=== PATIENT | male | born 1955 | race Caucasian/White ===

== ENCOUNTER 2019-08-13 10:11 | Inpatient (IN) | payer MEDICARE, OTHER ==
[~2019-08-13] VITALS: Ht 185.4 cm; Wt 68.2 kg
[2019-08-13] VITALS (7 sets, daily range): BP systolic 90–182; BP diastolic 40–83
[~2019-08-13 10:11] MED LIST: adenosine 3mg/ml 2ml vial IV ONE
[2019-08-13] MEDS ORDERED: famotidine/PF 10 mg/ml inj IV ONE (10:45)
[2019-08-13] MEDS ORDERED: normal saline 1000ML IV soln IV ONE (10:45)
[2019-08-13] MEDS ORDERED: octreotide inj. 1,250 MCG in normal saline 250ml IV soln 250 ML IV ONE (10:45)
[2019-08-13] MEDS ORDERED: pantoprazole 40 MG vial IV ONE (10:45)
[2019-08-13] MEDS ORDERED: ondansetron/PF 4mg/2ml inj IV ONE ×2 (10:45→11:40)
--- NOTE | 2019-08-13 10:45 | NUR ---
1020: vagal manuevers x2 tried; unsuccessful conversion 1022: Adenosine 6mg IV push w/ ns flush; [facility] 1023: Initial decrease in HR 1029: HR back at 180, Adenosine 12mg iv push w/ ns flush; [facility] 1030: HR 125; 2nd ekg performed 1047: HR back up to 179, Adenosine 12mg iv push w/ ns flush; [facility] 1049: HR 122 1052: HR 135; 2nd ekg performed
[2019-08-13 10:51] LABS: BASOPHILS # (AUTO) 0.1 X10'3 (0-0.2); BASOPHILS % (AUTO) 0.4 % (0-1); EOSINOPHILS % (AUTO) 0 % (0-6); HEMOGLOBIN 16.9 g/dl (14.0-17.9); LYMPHOCYTES # (AUTO) 2.7 X10'3 (1.1-4.8); LYMPHOCYTES % (AUTO) 12.6 % (21-51); MEAN CORPUSCULAR HEMOGLOBIN 31.5 PG (27.0-31.0); MEAN CORPUSCULAR HGB CONC 33.8 g/dL (33.0-36.5); MEAN CORPUSCULAR VOLUME 93.2 FL (78-98); MEAN PLATELET VOLUME 8.8 FL (7.4-10.4); MONOCYTES # (AUTO) 1.7 X10'3 (0-0.9); NEUTROPHILS # (AUTO) 16.8 X10'3 (1.8-7.7); PLATELET COUNT 155 X10'3 (140-440); RED BLOOD COUNT 5.36 X10'6 (4.70-6.10); RED CELL DISTRIBUTION WIDTH 13.1 % (11.5-14.5); WHITE BLOOD COUNT 21.3 X10'3 (4.5-11.0)
[2019-08-13 10:58] LABS: PARTIAL THROMBOPLASTIN TIME 37 SECONDS (22-32)
[2019-08-13] MEDS ORDERED: pantoprazole 40MG/NS 100ML BAG 100 ML IV SCH (11:00)
[2019-08-13 11:01] LABS: ALANINE AMINOTRANSFERASE 10 U/L (12-78); ALBUMIN 3.4 G/DL (3.4-5.0); ALBUMIN/GLOBULIN RATIO 0.8 (1.1-1.5); ALKALINE PHOSPHATASE 88 IU/L (46-116); ANION GAP 13 (8-16); ASPARTATE AMINO TRANSFERASE 18 U/L (10-37); BILIRUBIN,TOTAL 0.4 MG/DL (0.1-1.0); BLOOD UREA NITROGEN 53 MG/DL (7-18); BUN/CREATININE RATIO 30.3 (5.4-32.0); CALCIUM 9.5 MG/DL (8.5-10.1); CHLORIDE 99 MMOL/L (99-107); CREATININE 1.75 MG/DL (0.60-1.10); GLUCOSE 155 MG/DL (70-104); POTASSIUM 3.9 MMOL/L (3.5-5.1); SODIUM 135 MMOL/L (135-145); TOTAL CARBON DIOXIDE 23.2 MMOL/L (24-32); TOTAL PROTEIN 7.7 G/DL (6.4-8.2); eGFR 39 ML/MIN
[2019-08-13] MEDS ORDERED: diltiazem-NS 100mg/100ml 125 ML IV SCH (11:05)
[2019-08-13] MEDS ORDERED: diltiazem-D5W 125mg/125ml 125 ML IV SCH (11:05)
[2019-08-13] MEDS: diltiazem-NS 100mg/100ml 100 ML IV SCH ×2 (11:22→13:51)
--- NOTE | 2019-08-13 11:28 | NUR ---
the octreotide would not let you set the pump above 10ml/hr even though the order was for 10.25ml/hr. will inform MD and see if he wants it at 10.25 or 10.
[2019-08-13] MEDS ORDERED: NO HOME MEDS (11:50)
[2019-08-13] MEDS ORDERED: ondansetron/PF 4mg/2ml inj IV PRN (12:15)
[2019-08-13] MEDS ORDERED: mag hydrox/Alum hydrox/simeth 30ml oral suspension PO PRN (12:15)
[2019-08-13] MEDS ORDERED: magnesium Cl slow-release 64mg tablet PO PRN (12:15)
[2019-08-13] MEDS ORDERED: magnesium 4gm in 100ml NS 100 ML IV PRN (12:15)
[2019-08-13] MEDS ORDERED: docusate sod 100mg capsule PO PRN (12:15)
[2019-08-13] MEDS ORDERED: potassium Cl 20 mEq SR tablet PO PRN ×2 (12:15)
[2019-08-13] MEDS ORDERED: magnesium 2GM in 50ml NS 50 ML IV PRN (12:15)
[2019-08-13] MEDS ORDERED: potassium CL 10mEq/100ml bag 100 ML IV PRN ×2 (12:15)
[2019-08-13] MEDS ORDERED: acetaminophen 325mg tablet PO PRN (12:15)
[2019-08-13 13:12] LABS: OCCULT BLOOD STOOL POSITIVE (Neg)
[2019-08-13] MEDS: pantoprazole 40MG/NS 100ML BAG 100 ML IV SCH ×3 (13:13→21:13)
--- NOTE | 2019-08-13 13:37 | NUR ---
Anny stopped paging Dr Panchal to see if he wants to continue or DC it. Patient in sinus rhythm (94) SBP 92. Addendum: 08/13/19 at 1349 by Albert Geller RN Paged Dr Panchal the info. Will drop to 5ml/hr per
--- NOTE | 2019-08-13 13:47 | NUR ---
PAGER ID: [phone] MESSAGE: Re: Sherry Rocha, Room: 3026B. Can I put a diet order in for Pt? Pt will be NPO at midnight for CT tomorrow morning. -Jozef [facility] #[id number] Addendum: 08/13/19 at 1349 by Albert Geller RN wrong patient
[2019-08-13] MEDS ORDERED: diltiazem-NS 100mg/100ml 100 ML IV SCH (16:00)
[2019-08-13 17:17] LABS: CLARITY,URINE CLEAR (Clear); COLOR,URINE YELLOW (Yellow); GLUCOSE, URINE NEGATIVE (Neg); KETONES,URINE TRACE mg/dl (Neg); LEUKOCYTE ESTERASE ,URINE NEGATIVE (Neg); NITRITES, URINE NEGATIVE (Neg); OCCULT BLOOD,URINE SMALL (Neg); PH,URINE 5.5 (4.8-8.0); PROTEIN,URINE NEGATIVE (Neg); UROBILINOGEN,URINE 0.2 E.U/dL (0.2-1.0)
[2019-08-13 17:18] LABS: UA COLLECTION TYPE NON-SPECIFIED
[2019-08-13 17:21] LABS: BACTERIA,URINE NONE SEEN /HPF (Neg); MUCUS STRANDS NONE SEEN /LPF (Neg); RBC,URINE 0-2 /HPF (0-2); SQUAMOUS EPITHELIAL CELL,UR NONE SEEN /LPF (FEW); WBC,URINE 0-4 /HPF (0-4)
--- NOTE | 2019-08-13 18:08 | NUR ---
Problems reprioritized. Patient report given, questions answered & plan of care reviewed with MUSA Fernandez.
--- NOTE | 2019-08-13 18:30 | NUR ---
Patient in room PCU 3012. I have received report from Albert VIGIL and had the opportunity to ask questions and assume patient care.
[2019-08-13] MEDS: enoxaparin 30mg/0.3ml syringe SQ SCH (19:33)
[2019-08-13] MEDS: enoxaparin 40mg/0.4ml syringe SQ SCH (19:33)
[2019-08-13] MEDS ORDERED: FLU VACC QS 2019-20 (6 MOS UP) 60 MCG/0.5 ML VIAL IMVAC ONE (20:00)
[2019-08-13] MEDS: K and/or MAG REPLACEMENT MC SCH (20:00)
[2019-08-13] MEDS ORDERED: pneumococcal 23-VAL P-sac vacc 25 mcg/0.5ml vial IMVAC ONE (20:00)
[2019-08-13] MEDS ORDERED: diltiazem 30mg tablet PO ONE (21:50)
--- NOTE | 2019-08-13 21:59 | NUR ---
Discussed with Dr. Gibbs about patient HR and blood pressure on Cardizem @ 5mg. ordered 60mg cardizem now, stop order for cardizem gtt and to start 60mg cardizem q6 tmw am.
[2019-08-14] VITALS (22 sets, daily range): BP systolic 91–149; BP diastolic 37–72
[2019-08-14] MEDS: pantoprazole 40MG/NS 100ML BAG 100 ML IV SCH ×5 (01:27→21:32)
--- NOTE | 2019-08-14 06:00 | NUR ---
Patient in room PCU 3012. I have received report from Jim VIGIL and had the opportunity to ask questions and assume patient care.
[2019-08-14 06:07] LABS: BASOPHILS % (AUTO) 0.3 % (0-1); EOSINOPHILS % (AUTO) 0 % (0-6); HEMATOCRIT 37.6 % (42.0-52.0); LYMPHOCYTES # (AUTO) 1.5 X10'3 (1.1-4.8); LYMPHOCYTES % (AUTO) 14.3 % (21-51); MEAN CORPUSCULAR HEMOGLOBIN 31.6 PG (27.0-31.0); MEAN CORPUSCULAR HGB CONC 34.5 g/dL (33.0-36.5); MEAN CORPUSCULAR VOLUME 91.6 FL (78-98); MEAN PLATELET VOLUME 8.6 FL (7.4-10.4); MONOCYTES # (AUTO) 0.6 X10'3 (0-0.9); NEUTROPHILS # (AUTO) 8.4 X10'3 (1.8-7.7); NEUTROPHILS % (AUTO) 79.4 % (42-75); PLATELET COUNT 111 X10'3 (140-440); RED BLOOD COUNT 4.11 X10'6 (4.70-6.10); RED CELL DISTRIBUTION WIDTH 13.4 % (11.5-14.5); WHITE BLOOD COUNT 10.6 X10'3 (4.5-11.0)
[2019-08-14 06:17] LABS: ALANINE AMINOTRANSFERASE 10 U/L (12-78); ALBUMIN 2.7 G/DL (3.4-5.0); ALBUMIN/GLOBULIN RATIO 0.8 (1.1-1.5); ALKALINE PHOSPHATASE 64 IU/L (46-116); ANION GAP 8 (8-16); ASPARTATE AMINO TRANSFERASE 23 U/L (10-37); BILIRUBIN,TOTAL 0.3 MG/DL (0.1-1.0); BLOOD UREA NITROGEN 36 MG/DL (7-18); BUN/CREATININE RATIO 31.6 (5.4-32.0); CALCIUM 8.1 MG/DL (8.5-10.1); CHLORIDE 106 MMOL/L (99-107); CREATININE 1.14 MG/DL (0.60-1.10); GLUCOSE 127 MG/DL (70-104); MAGNESIUM 1.5 MG/DL (1.5-2.4); POTASSIUM 3.9 MMOL/L (3.5-5.1); SODIUM 138 MMOL/L (135-145); TOTAL CARBON DIOXIDE 23.8 MMOL/L (24-32); eGFR 64 ML/MIN
--- NOTE | 2019-08-14 06:25 | NUR ---
Problems reprioritized. Patient report given, questions answered & plan of care reviewed with Taylor VIGIL.
[2019-08-14] MEDS: diltiazem 30mg tablet PO SCH ×4 (07:31→19:17)
[2019-08-14] MEDS: enoxaparin 30mg/0.3ml syringe SQ SCH ×2 (07:31→19:14)
[2019-08-14] MEDS: enoxaparin 40mg/0.4ml syringe SQ SCH ×2 (07:31→19:14)
[2019-08-14] MEDS: K and/or MAG REPLACEMENT MC SCH ×2 (08:00→19:42)
[2019-08-14] MEDS: ciprofloxacin 250mg tablet PO SCH ×2 (10:26→21:31)
[2019-08-14] MEDS ORDERED: MIDAZolam 5mg/5ml vial ONE (11:46)
[2019-08-14] MEDS ORDERED: LIDOcaine Viscous 15ml cup ONE (11:46)
[2019-08-14] MEDS ORDERED: fentaNYL/PF 50MCG/1 ML 2ML syringe ONE (11:46)
[2019-08-14] MEDS ORDERED: epiNEPHrine 0.1mg/ml 10ml syringe ONE (13:58)
[2019-08-14] MEDS: metroNIDAZOLE-Flagyl 500mg/NS 100 ML IV SCH (15:20)
--- NOTE | 2019-08-14 18:39 | NUR ---
Patient in room PCU 3012. I have received report from Cassandra VIGIL and had the opportunity to ask questions and assume patient care.
--- NOTE | 2019-08-14 18:52 | NUR ---
Patient in room PCU 3012. I have received report from Taylor VIGIL and had the opportunity to ask questions and assume patient care.
[2019-08-15] VITALS: BP 98/43
[2019-08-15] MEDS: metroNIDAZOLE-Flagyl 500mg/NS 100 ML IV SCH ×2 (00:55→08:33)
[2019-08-15] MEDS: pantoprazole 40MG/NS 100ML BAG 100 ML IV SCH ×2 (01:00→03:50)
[2019-08-15] MEDS: diltiazem 30mg tablet PO SCH ×2 (01:02→08:00)
[2019-08-15 02:00] VITALS: BP 102/52
[2019-08-15 05:58] LABS: BASOPHILS % (AUTO) 0.4 % (0-1); EOSINOPHILS % (AUTO) 0.2 % (0-6); HEMATOCRIT 33.4 % (42.0-52.0); HEMOGLOBIN 11.6 g/dl (14.0-17.9); LYMPHOCYTES # (AUTO) 1.7 X10'3 (1.1-4.8); MEAN CORPUSCULAR HEMOGLOBIN 32.1 PG (27.0-31.0); MEAN CORPUSCULAR HGB CONC 34.7 g/dL (33.0-36.5); MEAN CORPUSCULAR VOLUME 92.4 FL (78-98); MEAN PLATELET VOLUME 8.5 FL (7.4-10.4); MONOCYTES # (AUTO) 0.5 X10'3 (0-0.9); NEUTROPHILS # (AUTO) 4.2 X10'3 (1.8-7.7); NEUTROPHILS % (AUTO) 65.4 % (42-75); PLATELET COUNT 115 X10'3 (140-440); RED BLOOD COUNT 3.62 X10'6 (4.70-6.10); RED CELL DISTRIBUTION WIDTH 13.3 % (11.5-14.5); WHITE BLOOD COUNT 6.4 X10'3 (4.5-11.0)
--- NOTE | 2019-08-15 06:08 | NUR ---
Problems reprioritized. Patient report given, questions answered & plan of care reviewed with Taylor VIGIL.
[2019-08-15 06:29] LABS: ALANINE AMINOTRANSFERASE 11 U/L (12-78); ALBUMIN 2.4 G/DL (3.4-5.0); ALBUMIN/GLOBULIN RATIO 0.7 (1.1-1.5); ALKALINE PHOSPHATASE 54 IU/L (46-116); ANION GAP 7 (8-16); ASPARTATE AMINO TRANSFERASE 19 U/L (10-37); BILIRUBIN,TOTAL 0.3 MG/DL (0.1-1.0); BLOOD UREA NITROGEN 22 MG/DL (7-18); BUN/CREATININE RATIO 22.9 (5.4-32.0); CALCIUM 7.6 MG/DL (8.5-10.1); CHLORIDE 108 MMOL/L (99-107); CREATININE 0.96 MG/DL (0.60-1.10); GLUCOSE 98 MG/DL (70-104); MAGNESIUM 1.5 MG/DL (1.5-2.4); POTASSIUM 3.8 MMOL/L (3.5-5.1); SODIUM 141 MMOL/L (135-145); TOTAL CARBON DIOXIDE 25.6 MMOL/L (24-32); TOTAL PROTEIN 5.7 G/DL (6.4-8.2); eGFR 79 ML/MIN
[2019-08-15 07:00] VITALS: BP 121/67
--- NOTE | 2019-08-15 07:26 | NUR ---
Patient in room PCU 3012. I have received report from Cassandra VIGIL and had the opportunity to ask questions and assume patient care.
[2019-08-15] MEDS: K and/or MAG REPLACEMENT MC SCH (08:00)
[2019-08-15] MEDS: enoxaparin 30mg/0.3ml syringe SQ SCH (08:34)
[2019-08-15] MEDS: enoxaparin 40mg/0.4ml syringe SQ SCH (08:34)
[2019-08-15] MEDS ORDERED: ESOM40CA49 PO (09:24)
[2019-08-15] MEDS: ciprofloxacin 250mg tablet PO SCH (09:53)
[2019-08-15 09:59] VITALS: BP 95/66
[2019-08-15 10:00] VITALS: BP_SYST 125; BP_SYST 99; BP_DIAS 54; BP_DIAS 57
--- NOTE | 2019-08-15 11:30 | NUR ---
Patient was cleared to discharge home. Orthostatic blood pressures obtained to ensure stability, pt did well. MD notified. Patient was vaccinated prior to discharge. Discharge instructions and medications reviewed with patient. S/sx reviewed with patient. Written prescription given to Pt. Tele removed. PIV's removed. Patient left in stable condition accompanied by his daughter.
== END 2019-08-15 11:27 | disposition home or self-care (01) | DRG 377 ==
LOC: ER 10:12 → ED HOLD 12:15 → PCU 3S 13:34
PROVIDERS: ADMIT Family Medicine; ATTEND Family Medicine
PROC: 3E02340 Introduction of Influenza Vaccine into Muscle, Percutaneous Approach (ICD-10-PCS; 2019-08-13)
PROC: 0DB68ZX Excision of Stomach, Via Natural or Artificial Opening Endoscopic, Diagnostic (ICD-10-PCS; principal; 2019-08-14)
PROC: 0W3P8ZZ Control Bleeding in Gastrointestinal Tract, Via Natural or Artificial Opening Endoscopic (ICD-10-PCS; 2019-08-14)
PROC: 3E0234Z Introduction of Serum, Toxoid and Vaccine into Muscle, Percutaneous Approach (ICD-10-PCS; 2019-08-15)
DX: K26.4 Chronic or unspecified duodenal ulcer with hemorrhage (principal); N17.0 Acute kidney failure with tubular necrosis; I47.1 Supraventricular tachycardia; D62 Acute posthemorrhagic anemia; T39.395A Adverse effect of other nonsteroidal anti-inflammatory drugs [NSAID], initial encounter; K29.51 Unspecified chronic gastritis with bleeding; I49.9 Cardiac arrhythmia, unspecified; I49.3 Ventricular premature depolarization; E86.0 Dehydration; J44.9 Chronic obstructive pulmonary disease, unspecified; D72.829 Elevated white blood cell count, unspecified; K21.9 Gastro-esophageal reflux disease without esophagitis; Z80.0 Family history of malignant neoplasm of digestive organs; Z82.3 Family history of stroke; Z82.49 Family history of ischemic heart disease and other diseases of the circulatory system; Z83.3 Family history of diabetes mellitus; Z72.0 Tobacco use; Z23 Encounter for immunization
CPT/HCPCS: 36415; 43227; 43236; 43239; 43255; 71045; 80053; 81001; 82272; 83735; 85025; 85610; 85730; 86870; 86885; 86900; 86901; 87081; 93005; 93308; 99152; 99153; A4620; C9113; G0378; J0153; J0171; J1650; J2250; J2354; J2405; J3010; J3490; J7030; J7040; J7050; Q2037

== ENCOUNTER 2021-07-01 12:04 | Emergency (ER) | payer OTHER, MEDICARE ==
[~2021-07-01] VITALS: Ht 185.4 cm; Wt 68.2 kg
[~2021-07-01 12:04] MED LIST changes: +ESOM40CA49 PO; -adenosine 3mg/ml 2ml vial IV ONE
--- NOTE | 2021-07-01 12:56 | NUR ---
lab at bedside
[2021-07-01 13:08] LABS: BASOPHILS % (AUTO) 0.4 % (0-1); EOSINOPHILS # (AUTO) 0.2 X10'3 (0-0.9); EOSINOPHILS % (AUTO) 1.3 % (0-6); HEMATOCRIT 47.7 % (42.0-52.0); HEMOGLOBIN 16.2 g/dl (14.0-17.9); LYMPHOCYTES # (AUTO) 2.3 X10'3 (1.1-4.8); LYMPHOCYTES % (AUTO) 17.5 % (21-51); MEAN CORPUSCULAR HGB CONC 33.9 g/dL (33.0-36.5); MEAN CORPUSCULAR VOLUME 94.5 FL (78-98); MONOCYTES % (AUTO) 7.7 % (2-12); NEUTROPHILS # (AUTO) 9.7 X10'3 (1.8-7.7); NEUTROPHILS % (AUTO) 73.1 % (42-75); PLATELET COUNT 161 X10'3 (140-440); RED BLOOD COUNT 5.05 X10'6 (4.70-6.10); RED CELL DISTRIBUTION WIDTH 12.8 % (11.5-14.5); WHITE BLOOD COUNT 13.2 X10'3 (4.5-11.0)
[2021-07-01 13:30] LABS: ALANINE AMINOTRANSFERASE 16 U/L (12-78); ALBUMIN 3.6 G/DL (3.4-5.0); ALBUMIN/GLOBULIN RATIO 0.9 (1.1-1.5); ALKALINE PHOSPHATASE 120 IU/L (46-116); ANION GAP 9 (8-16); ASPARTATE AMINO TRANSFERASE 15 U/L (10-37); BILIRUBIN,TOTAL 0.5 MG/DL (0.1-1.0); BLOOD UREA NITROGEN 18 MG/DL (7-18); BUN/CREATININE RATIO 15.7 (5.4-32.0); CHLORIDE 106 MMOL/L (99-107); CREATININE 1.15 MG/DL (0.60-1.10); GLUCOSE 86 MG/DL (70-104); LIPASE < 50 U/L (73-393); POTASSIUM 4.2 MMOL/L (3.5-5.1); SODIUM 142 MMOL/L (135-145); TOTAL CARBON DIOXIDE 26.6 MMOL/L (24-32); TOTAL PROTEIN 7.6 G/DL (6.4-8.2); eGFR 63 ML/MIN
--- NOTE | 2021-07-01 13:50 | NUR ---
urine sent to lab, pt steady on feet able to use urinal independently.
[2021-07-01 13:53] LABS: CLARITY,URINE SLIGHTLY CLOUDY (Clear); COLOR,URINE YELLOW (Yellow); GLUCOSE, URINE NEGATIVE (Neg); KETONES,URINE 15 mg/dl (Neg); LEUKOCYTE ESTERASE ,URINE SMALL (Neg); NITRITES, URINE NEGATIVE (Neg); OCCULT BLOOD,URINE LARGE (Neg); PROTEIN,URINE TRACE mg/dl (Neg); UROBILINOGEN,URINE 0.2 E.U/dL (0.2-1.0)
[2021-07-01 13:58] LABS: UA COLLECTION TYPE CLN CATCH MIDSTREAM
[2021-07-01 14:00] LABS: BACTERIA,URINE 1+ /HPF (Neg); SQUAMOUS EPITHELIAL CELL,UR FEW /LPF (FEW)
[2021-07-01 14:01] LABS: SPERM FEW /HPF (NEGATIVE)
[2021-07-01] MEDS ORDERED: morphine 4 MG/ML inj SYRINge IV ONE (14:10)
--- NOTE | 2021-07-01 14:30 | NUR ---
pt to/from ct without incident.
[2021-07-01] MEDS ORDERED: iohexol 300mg/ml 100ml inj. ONE (14:40)
--- NOTE | 2021-07-01 16:00 | NUR ---
pt resting in bed, reports pain 2/10 after morphine admin.
[2021-07-01] MEDS ORDERED: CEFD300C3 PO (16:34)
[2021-07-01 17:12] VITALS: BP 154/88
== END 2021-07-01 17:15 | disposition home or self-care (01) ==
LOC: ER 12:05
DX: N39.0 Urinary tract infection, site not specified (principal); N32.89 Other specified disorders of bladder; E78.00 Pure hypercholesterolemia, unspecified; Z87.442 Personal history of urinary calculi; Z79.899 Other long term (current) drug therapy
CPT/HCPCS: 36415; 74177; 80053; 81001; 83690; 85025; 87088; 96374; 99285; J2270; Q9967